=== PATIENT | female | born 1970 | race Caucasian/White ===

== ENCOUNTER → 2019-07-10 | Outpatient (CLI) | payer BC ==
[~2019-07-10] VITALS: Ht 162.6 cm; Wt 100.7 kg
[~2019-07-10] MED LIST: BASAGLAR K100 UNIT/1 SUBQ; CLARITIN10 M3 PO; DEPAKOTE500 MG PO; DIPHENHIST50 MG PO; GLUCOPHAGE500 MG PO; JARDIANCE25 MG PO; LIPITOR40 MG PO; MULTI-VITAMIN1 EAC5 PO; PROAIR HFA8.5 GM INH; VASCEPA1 GM PO; VITAMIN B-121000 MC2 SUBLING; ZESTRIL10 MG PO
--- NOTE | 2019-07-13 16:06 | PATH ---
[facility] [place] [address] PATHOLOGY RPT PROCEDURE Name: MARIE CASH Room #: REG MARIZOL Do#: [id number] Admission: 07/10/19 Date of : 66 Discharge: Report #: [id number] Path Case #: [id number] [facility] Accession Number: [id number] . 01 Material submitted: . PART A: colon - POLYP AT ASCENDING COLON. Modifiers: ascending PART B: colon - POLYP AT SIGMOID COLON X2. Modifiers: sigmoid . 01 Clinical history: . Preop DX: Screening Postop DX: Colon polyps . 02 Diagnosis: A. Polyp, at ascending colon, endoscopic biopsy: - Tubular adenoma. - Negative for high-grade dysplasia. . B. Polyp x2, at sigmoid colon, endoscopic biopsy: - Both showing tubular adenoma. - Negative for high-grade dysplasia. . ([facility]:vazquez; 07/13/2019) MBR 07/13/2019 1315 Local . 02 Electronically signed: . Susana Melo MD, Pathologist NPI- [id number] . 01 Gross description: . A. Received in formalin labeled "Marie Cash, polyp at ascending colon," are three segments of rae-brown soft tissue measuring 1.5 x 0.8 x 0.4 cm in aggregate dimensions and ranging from 0.5 to 1.5 cm in maximum dimension admixed with green-yellow vegetative/mucoid material. The specimen is submitted entirely in cassette A1. . B. Received in formalin labeled "Marie Cash, polyp at sigmoid colon x2," are two polypoid segments of rae-brown soft tissue measuring 1.2 x 1.2 x 1.0 cm and 1.2 x 1.0 x 0.9 cm in greatest dimensions. The surgical margins are inked black. The first described segment is serially sectioned to reveal firm, rae-brown cut surfaces; this segment is submitted entirely in cassette B1. The second described segment is serially sectioned to reveal firm, pale rae cut surfaces; this segment is submitted entirely in cassette B2. ([facility]; 07/12/2019) XDC/XIN 07/12/2019 0947 [facility] . 02 Pathologist provided ICD-10: [address] [address] PATHOLOGY RPT PROCEDURE Name: MARIE CASH Room #: REG [id number] Admission: 07/10/19 Date of : 66 Discharge: Report #: [id number] Path Case #: [id number] D12.2, D12.5 . 02 CPT . [id number], [id number] Specimen Comment: A courtesy copy of this report has been sent to [phone] Specimen Comment: 1991 Specimen Comment: Report sent to / DR LOCKWOOD Performed at: [address], [place] [id number] MD Michael Rush MD Phone: [phone] Performed at: [address] [id number] MD Susana Melo MD Phone: [phone]
== END | disposition home or self-care (01) ==
LOC: GI 07:48
DX: Z12.11 Encounter for screening for malignant neoplasm of colon (principal); D12.5 Benign neoplasm of sigmoid colon; D12.2 Benign neoplasm of ascending colon; K64.8 Other hemorrhoids; I10 Essential (primary) hypertension; E78.5 Hyperlipidemia, unspecified; F31.9 Bipolar disorder, unspecified; E11.9 Type 2 diabetes mellitus without complications; J45.909 Unspecified asthma, uncomplicated; E03.9 Hypothyroidism, unspecified; Z98.51 Tubal ligation status; Z98.890 Other specified postprocedural states; Z79.899 Other long term (current) drug therapy; Z88.2 Allergy status to sulfonamides; Z88.8 Allergy status to other drugs, medicaments and biological substances
CPT/HCPCS: 62110; 62900